=== PATIENT | male | born 1960 | race Two or more races ===

== ENCOUNTER 2017-04-03 11:48 | Inpatient (IN) | payer MEDICARE, MEDICAID ==
[~2017-04-03] VITALS: Ht 180.3 cm; Wt 92.8 kg
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
--- NOTE | ~2017-04-03 | NDGEN ---
PATIENT'S NAME: ELDA DAVIDSON [facility] AGE: 56 Y [address] ROOM: [place] [address] LOCATION: GPCU ADMIT DATE: 04/03/2017 Neurodiagnostics DISCHARGE DATE: 04/04/2017 FAMILY PHYSICIAN: PHYSICIAN, NO ATTENDING PHYSICIAN: Mary Cordero PROCEDURE: ELECTROENCEPHALOGRAM DATE OF PROCEDURE: 04/04/2017 TEST: TECH: CLINICAL DIAGNOSIS: DURATION OF EE minutes. REASON FOR EEG: Seizures. CLINICAL HISTORY: The patient is a 56-year-old male who has history of coronary artery disease, alcoholism, COPD, and old stroke who is visiting to [place] from [place] to see his son. While coming to the hospital, the patient had a sudden fall and was noted to be somewhat confused. EEG FINDINGS: The patient is asleep for the entire duration of EEG. The sleep pattern shows good symmetric sleep structures with 14 hertz sleep spindles in the frontal central regions, vertex waves in the central head regions, and K complexes were appreciated. Activation procedures included photic stimulation between 3-30 hertz, which did not show any abnormalities. No definitive awake pages were achieved during this recording. CLASSIFICATION: Normal sleep 10/20 scalp electrodes. IMPRESSION: This EEG is somewhat limited in interpretation as there were no definitive awake pages that were seen. The sleep symmetry appears to be good and has good sleep-related structures throughout the recording. The patient was not awake at any time during this recording. Please correlate clinically. No definitive epileptiform discharges or EEG seizures were seen during this recording. PRASHANTH MORGAN MD SYLVIA/modl PATIENT'S NAME: ELDA DAVIDSON [facility] AGE: 56 Y [address] ROOM: [place] [address] LOCATION: GPCU ADMIT DATE: 04/03/2017 Neurodiagnostics DISCHARGE DATE: 04/04/2017 FAMILY PHYSICIAN: PHYSICIAN, NO ATTENDING PHYSICIAN: Mary Cordero /[id number] dtt: 04/05/17 0938 , PRASHANTH MORGAN dtd: 04/05/17 0327
--- NOTE | ~2017-04-03 | ECHO ---
Transthoracic Echocardiography Report (TTE) Demographics Patient Name ELDA DAVIDSON Date of Study 04/03/2017 Patient Number [id number] Visit Number [id number] Date of 1960 Room Number G6337 Accession Number [id number] Gender Male Age 56 year(s) Referring Abdoul Arias MD Laborer Filter Plant Terri Rueda [facility], Physician RVT Physician Interpreting Consuelo Hernandez Credit Advisor Physician MD Supervising Ordering Physician Consuelo Hernandez MD/FELIPEP Nurse Stress Carpenter Bridge Conclusions Contractility Score Summary Normal Left Ventricular contractility was noted. Summary Technically difficult exam. Normal LV/RV size and systolic function. The estimated left ventricular ejection fraction is 55-60%. Diastolic assessment reveals Grade I diastolic dysfunction. Moderate posterior pericardial effusion. There is no echocardiographic evidence of cardiac tamponade. Mild mitral regurgitation by color Doppler. Procedure Type of Study TTE procedure:2D Echocardiogram. Procedure Date Date: 04/03/2017 Start: 12:21 PM Study Location: Inpatient Portable Technical Quality: Fair Indications:Chest pain. Appropriate Use Criteria: 7 Patient Status: Routine Rhythm: Within normal limits HR: 80 bpm BP: 131/85 mmHg Allergies - Penicillin. M-Mode/2D Measurements LV Diastolic Dimension: 3.41 cm LV Systolic Dimension: 1.87 cm LV Septum Diastolic: 0.99 cm LV PW Diastolic: 0.89 cm AO Root Dimension: 2.5 cm Cardiac Output: 5.55 l/min LA Dimension: 2.6 cm Post Pericard Effusion: 2 cm LVOT: 2 cm IVC Inspiration: 0.44 cm LVOT VTI: 22.1 cm RV Base: 3.11 cm LV Stroke volume: 69.39 ml RV Length: 5.56 cm TAPSE: 1.6 cm TDI-S': 10.9 cm/s Doppler Measurements AV Peak Velocity: 1.14 m/s MV Peak E-Wave: 0.5 m/s AV Peak Gradient: 5.2 mmHg MV Peak A-Wave: 0.78 m/s AV Mean Gradient: 3 mmHg MV E/A Ratio: 0.64 LVOT Peak Velocity: 0.82 m/s MV P1/2t: 46 msec PV Peak Velocity: 0.65 m/s E' Septal Velocity: 0.09 m/s PV Peak Gradient: 1.71 mmHg E' Lateral Velocity: 0.08 m/s A' Septal Velocity: 0.08 m/s MV E/E' Ratio: 6.7 Findings Left Ventricle The estimated left ventricular ejection fraction is 55-60%. Diastolic assessment reveals Grade I diastolic dysfunction. Right Ventricle Grossly normal right ventricle structure and function. Left Atrium Grossly normal left atrial size. Right Atrium Grossly normal right atrial size. Mitral Valve Mild mitral regurgitation by color Doppler. Aortic Valve The aortic valve is mildly sclerotic. Tricuspid Valve The tricuspid valve is not well visualized. Pulmonic Valve No pulmonic valve regurgitation by color Doppler. The pulmonic valve is not well visualized. Pericardial Effusion Moderate posterior pericardial effusion. Miscellaneous Visualized portions of the aortic root and ascending aorta appear normal in size. Pleural Effusion Possible pleural effusion. Contractility Score LV regional wall motion:(0-Non visualized 1-Normal 2-Hypokinesis 3-Akinesis 4-Dyskinesis 5-Aneurysm) Signature dtt: NILAM HANNA dtd: 04/03/17 1221 Physician Self Edit
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
--- NOTE | ~2017-04-03 | CATH ---
Cardiac Diagnostic Report Demographics Patient Name STUART Alexander Gender Male Date of 1960 Age 56 year(s) Patient Number [id number] Date of Study 04/03/2017 Visit Number [id number] Room Number G6337 Corporate ID Ht 180.34 cm Wt 97.52 kg Referring [facility] Primary Physician Physician Abdoul Arias MD Performing [facility] Secondary Physician Physician Mary ANNE Diagnostic [facility] Assisting Physician Physician Mary ANNE Interventional Physician Machine Sewer Physician Findings and Conclusions Diagnostic Findings and Conclusion Mild non-obstructive CAD. Mid RCA, Mid Cx 20% stenosis and mid LAD 30%. Diagnostic Recommendations Guideline directed medical therapy. CT of Chest to rule out Aortic Dissection and Pulmonary embolism. Patient will be observed overnight. Hydration and followup creatinine. Recommend work up for non-cardiac causes of symptoms. Patient has been instructed to not lift anything more than 5 pounds for 1 week. Aggressive medical therapy for coronary artery disease. Procedure Description The patient was brought to the diagnostic cardiac catheterization-EP laboratory by emergency personal. Physician deemed procedure as EMERGENT. The planned puncture-incision site(s) were shaved and prepped with ChloraPrep and draped in the usual sterile manner. Conscious sedation, supplemental oxygen, and pain control medications were delivered by a registered nurse under physician guidance. Surface ECG rhythm, blood pressure measurement, and pulse oximetry were monitored throughout the procedure. Arterial access. The access site was infiltrated with lidocaine. The vessel was entered with the Seldinger technique. A sheath was advanced into the vessel and used for catheter placement. Selective left coronary angiography. A catheter was advanced into the left coronary vessel ostium under Fluoroscopic guidance. Contrast was injected by hand. Images were obtained in multiple projections. Selective right coronary angiography. A catheter was advanced into the right coronary vessel ostium under fluoroscopic guidance. Contrast was injected by hand. Images were obtained in multiple projections. Left heart catheterization. A catheter was advanced across the aortic valve to the left ventricle under fluoroscopic guidance. Resting hemodynamics were obtained. Arterial artery hemostasis was achieved. The patient was transferred to a regular nursing floor via cart accompanied by a nurse. The patient left the laboratory in stable condition. Diagnostic Cath Status: Emergency Procedure Procedure Type Diagnostic procedure:Angiography:, Coronary Angios w/[facility] Indications: Acute coronary syndrome and non-sustained VTach. The procedure was explained in detail to the patient. Risks, complications and alternative treatments were reviewed. Written consent was obtained. Medications Reviewed with Patient prior to Procedure. Angiographic Findings Dominance: Right Cardiac Arteries and Lesion Findings LMCA: Normal (0% Stenosis). LAD: Abnormal.The 1st Diag appears normal. Lesion on Mid LAD: 30% stenosis . LCx: Abnormal.The 1st ob Brittany appears normal. Lesion on Mid CX: 20% stenosis . RCA: Abnormal.The R PDA appears normal. The R PL appears normal. Lesion on Mid RCA: 20% stenosis . Ramus: Normal (0% Stenosis). Coronary Tree Procedure Data Procedure Date Date: 04/03/2017Start: 01:42 PMEnd: 02:09 PM Entry Locations - Retrograde Percutaneous access was performed through the Right Radial artery (Primary location). A 6 Fr sheath was inserted. Hemostasis was successfully obtained using an R band. Closure Comments: Oscar placed r-band with 15 ml air.. Procedure Medications Order and Administration + + + + + !Time !Medication !Dosage !Route ! + + + + + !04/03/2017 01:38 PM !Versed !1 mg !I.V. ! + + + + + !04/03/2017 01:38 PM !Fentanyl !25 mcg !I.V. ! + + + + + !04/03/2017 01:42 PM !Versed !1 mg !I.V. ! + + + + + !04/03/2017 01:42 PM !Fentanyl !50 mcg !I.V. ! + + + + + !04/03/2017 01:45 PM !Radial Verapamil !2.5 mg !I.A. ! + + + + + !04/03/2017 01:45 PM !Oxygen !2 l/min !NC ! + + + + + !04/03/2017 01:46 PM !Heparin (ACC_3) !4000 units !I.V. bolus ! + + + + + !04/03/2017 01:59 PM !Oxygen ! !NC ! + + + + + Devices Used - A5 Fr. BS JR 4 Diag. Catheterwas used for:Right coronary angiography. - A5 Fr. BS JL 3.5 Diag. Catheterwas used for:Left coronary angiography. Contrast Material - Isovue 34040 ml Fluoroscopy Time: Diagnostic: 2:24 minutes. Total: 2:24 minutes. Fluoroscopy Dose: Diagnostic: 544 mGy. Total: 544 mGy. Estimated Blood Loss: 10 ml. Medical History Performed Procedures and Imaging Results - No ACC stress or imaging studies were performed. Allergies - Penicillin. Risk Factors The patient risk factors include:prior PCI;cerebrovascular disease, hypertension, family history of premature CAD, diet-treated diabetes mellitus, chronic lung disease, dyslipidemia, Current/Recent(w/in 1 year) tobacco use and prior [place] . Admission Data Admission Date: 04/03/2017 Admission Time: 12:10 PM Admit Source: Emergency department Insurance Payors: Medicare. Clinical Evaluation Leading to Procedure - The patient's CAD presentation was assessed as: Unstable angina. - The patient's anginal syndrome during the past two weeks was assessed as: Class IV according to the [place] Cardi[employer] Classification System (CCS). Hemodynamics Condition: Rest O2 Consumption: Estimated: 267.62Heart Rate: 83 bpm Pressures (mmHg) +-----+ + !Site !Pressure ! +-----+ + !LV !97/20 ,16 ! +-----+ + !LV !95/18 ,15 ! +-----+ + !AO !110/86 (99) ! +-----+ + !LV !103/31 ,16 ! +-----+ + !AO !105/84 (95) ! +-----+ + !AO !104/75 (89) ! +-----+ + Valve Gradients and Areas + +---------+---------+---------+ +---------+ + !Valve !Peak !Mean !Area !Index !Flow !Source ! + +---------+---------+---------+ +---------+ + !Aortic !0 ! ! ! ! ! ! + +---------+---------+---------+ +---------+ + !Aortic !0 ! ! ! ! ! ! + +---------+---------+---------+ +---------+ + Shunts Oxygen Values O2 Capacity 202.64 O2 Consumption 267.62 Signatures dtt: MARY HANNA dtd: 04/03/17 1342 Physician Self Edit
--- NOTE | ~2017-04-03 | ER ---
PATIENT'S NAME: ELDA DAVIDSON [facility] AGE: 56 Y [address] ROOM: [place] [address] LOCATION: GPCU ADMIT DATE: 04/03/2017 ER/Outpatient Report DISCHARGE DATE: FAMILY PHYSICIAN: PHYSICIAN, NO ATTENDING PHYSICIAN: NILAM HANNA CHIEF COMPLAINT: Fall and chest pain. HISTORY OF PRESENT ILLNESS: Mr. Davidson arrives by ambulance for assistance alert within the hospital. He is originally from [facility]. Has a history of cirrhosis, seizure, stroke, COPD, and coronary artery disease with three caths and some stents in the past. He states that he has had chest pain for about a day but it got a lot worse this morning. This actually did cause him to fall. He also feels very weak with nonspecific symptoms in both arms and both legs. He states he cannot move his left leg. He is a very poor historian. His associated family is not particularly helpful but does give some perspective. The patient rates his chest pain at 8/10 and it is heaviness that radiates through to his back. PAST MEDICAL HISTORY: Documented on the record and reviewed by me. SOCIAL HISTORY: Documented on the record and reviewed by me. MEDICATIONS: Documented on the record and reviewed by me. ALLERGIES: DOCUMENTED ON THE RECORD AND REVIEWED BY ME. REVIEW OF SYSTEMS: All systems were reviewed and negative except as noted in the HPI. PHYSICAL EXAMINATION: VITAL SIGNS: Blood pressure was found to be within normal limits, please see flow sheet for same. Initial blood pressure is 131/85, pulse is 92, SpO2 is 99% on room air. Pain is rated 8/10. GENERAL: Age-appropriate male, frail appearance, recumbent on exam table, slightly diaphoretic, in mild distress and confused. NEUROLOGIC: The patient is awake, he is intermittently alert. No focal deficits appreciated. It takes significant amount of concentration and PATIENT'S NAME: ELDA DAVIDSON [facility] AGE: 56 Y [address] ROOM: [place] [address] LOCATION: GPCU ADMIT DATE: 04/03/2017 ER/Outpatient Report DISCHARGE DATE: FAMILY PHYSICIAN: PHYSICIAN, NO ATTENDING PHYSICIAN: TUNUGUNTLA,NILAM encouragement to have him activate his left side, but he is able to do so symmetrically when compared with the right side. Sensation is grossly intact to touch throughout. No obvious cranial nerve deficits. HEENT: Normocephalic, atraumatic. Eyes are PERRL. Oropharynx is clear. NECK: Supple. Trachea is midline. CHEST: Heart has regular rate and rhythm with no obvious murmurs. LUNGS: Grossly clear to auscultation bilateral. ABDOMEN: Soft, nontender, and nondistended. Slightly protuberant. BACK: Normal to inspection and palpation. EXTREMITIES: Warm, well formed, no appreciable deformities or edema. SKIN: Clean and intact with mild diaphoresis. Labs were obtained. CMS: Potassium is 3.4, chloride is 111, CO2 is 19, sodium is 140, BUN is 15, creatinine 1.2. AST is 49, otherwise LFTs are unremarkable. Initial CPK, CK-MB, and troponin are within normal limits. CBC with no appreciable abnormalities. INR is 1. Chest x-ray is unremarkable per my review with spinal cord stimulator in place. Head CT unremarkable per Radiology review. IMPRESSION: 1. Nonsustained ventricular tachycardia. 2. Syncopal event versus fall. 3. Active chest pain. EMERGENCY DEPARTMENT COURSE: The patient was seen and evaluated as above. His presentation is unclear as to its etiology. Based on his history, with his chief complaint, cardiac was considered most likely. The patient did have a few runs of nonsustained ventricular tachycardia here in the emergency department. He was slightly confused after these. He overall did well. Dr. Vazquez, hospitalist, will admit for further evaluation and treatment of his current presentation. Dr. Mosquera will take him to the drop crew laborer for definitive evaluation of the heart status. All questions were answered to the best of my ability, and he was admitted. MD JOHN ESTRELLA/quita /[id number] d: t: 04/03/175, OUTPATIENT REPORT
--- NOTE | ~2017-04-03 | DS ---
PATIENT'S NAME: ELDA DAVIDSON [facility] AGE: 56 Y [address] ROOM: [address] [place], [place] [address] LOCATION: GPCU ADMIT DATE: 04/03/2017 Discharge Summary DISCHARGE DATE: 04/04/2017 FAMILY PHYSICIAN: PHYSICIAN, NO ATTENDING PHYSICIAN: Mary Cordero ADMITTING DIAGNOSIS: Fall, questionable seizure. DISCHARGE DIAGNOSIS: Loss of consciousness, possible seizure. SECONDARY DIAGNOSIS: Chest pain. PROCEDURE: 1. Coronary angiogram done on April 03, 2017, which shows no obstructive coronary artery disease. 2. CT PE protocol that shows no signs of PE. 3. CT head done twice in 24 hours' duration, which shows no signs of acute change. CONSULTATIONS: Neurology and Cardiology. HISTORY OF PRESENT ILLNESS: The patient is a 56-year-old gentleman with past medical history of CAD, status post PCI; liver disease, alcoholic; COPD; stroke with some left residual deficit, who presents here with syncope. The patient is originally from [place], [place] and was here to visit the son in the hospital. However, today while coming into the hospital, the patient had a sudden fall. Assist Alert was called and the patient was seen in the hospital facility. The patient was noted to be somewhat confused and complained about chest pain. The patient was taken to the emergency department for further care. The patient reports that for the past 24 hours he has been experiencing substernal chest pain radiating to his shoulder blade. Initially, he rates the pain at 4/10, but however, lately has been 10/10. Currently, he rates the pain at 4/10. He reports that the pain is constant in nature, without alleviating or exacerbating factor. The patient also reports worsening of his residual left-sided weakness. Of note, the patient also reports that he was confused after his fall and was not quite sure whether he had a seizure or not. HOSPITAL COURSE: There were suspicions for coronary events as the patient had some nonsustained V-tach. The patient was taken to the cath lab tech and coronary angiogram was done, which shows no signs of obstructive coronary artery disease. The patient also had echocardiogram, which shows normal EF. There was a concern for PE since the patient has some substernal chest pain and syncope. CT chest was done that shows no PE. During his stay, the patient PATIENT'S NAME: ELDA DAVIDSON [facility] AGE: 56 Y [address] ROOM: [address] [place], [place] [address] LOCATION: GPCU ADMIT DATE: 04/03/2017 Discharge Summary DISCHARGE DATE: 04/04/2017 FAMILY PHYSICIAN: PHYSICIAN, NO ATTENDING PHYSICIAN: Mary Cordero also complained about worsening of his left-sided residual weakness. However, during evaluation by nursing staff and physician, also Neurology consult, the patient was noted to have normal strength, 1 to 2 out of [address] head was negative. MRI was unable to be done because of the patient's pain nerve stimulator. A repeat CT next day shows no signs of stroke. The patient was able to walk and regained his strength back. 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 The patient's Dilantin level was noted to be low. On further discussion, the patient reports that he has not been taking all of his medications since he came to [place]. The patient was given a loading dose of Dilantin and was restarted back on his home medication. CONDITION: Stable. DISPOSITION: Home. DISCHARGE MEDICATIONS: See MAR. DISCHARGE INSTRUCTIONS: If the patient has any seizure-like activity, fall, chest pain, or shortness of breath, to go to the next emergency department. Also told the patient not to drive a car and/or run heavy machinery. FOLLOWUP: With Neurology, Cardiology, and primary care physician. PHYSICAL EXAMINATION: VITAL SIGNS: Stable. HEAD: Normocephalic, atraumatic. CHEST: Clear to auscultation. HEART: Regular rate and rhythm. No murmurs, rubs, or gallops. ABDOMEN: Soft, nontender, nondistended. Bowel sounds present. CARBON PAPER INTERLEAFER: Alert and oriented x2, not oriented to time. Motor and sensory strength are within normal limits. Greater than 30 minutes was spent on discharge planning. MD SABAS TERRY/quita /[id number] d: t: 04/05/17 0445, DISCHARGE SUMMARY
[2017-04-03 12:56] LABS: BASOPHIL % 0.1 %; EOSINOPHIL # 0.1 K/uL (0.0-0.5); EOSINOPHIL % 0.7 %; HEMATOCRIT 42.3 % (37.0-53.0); HEMOGLOBIN 14.9 g/dL (12.0-17.0); IMMATURE GRANULOCYTE % 0.1 %; LYMPHOCYTE # 2.5 K/uL (0.8-4.0); LYMPHOCYTE % 37.2 %; MCH 31.9 pg (27.0-34.0); MCHC 35.2 gm/dL (32.0-36.5); MCV 90.6 fl (83.0-98.0); MONOCYTE # 0.6 K/uL (0.0-1.0); MONOCYTE % 8.5 %; NEUTROPHIL # (ANC) 3.6 K/uL (1.4-9.0); NEUTROPHIL % 53.4 %; NRBC % 0 /100WBC (0-0.00); PLATELET COUNT 165 K/uL (150-450); RBC 4.67 M/uL (4.00-6.00); RDW-CV 12.6 % (11.9-14.6); WBC 6.7 K/uL (4.0-11.0)
[2017-04-03 13:06] LABS: INR - (THERAPEUTIC) 1.07 (0.92-1.07); PROTIME 11.2 SECONDS (9.8-11.4); PTT 29 SECONDS (25-32)
[2017-04-03 13:16] LABS: ALBUMIN 4.6 gm/dL (3.5-5.0); ALK PHOS 92 IU/L (33-138); ALT 46 IU/L (12-78); ANION GAP 13.4 (10.0-19.0); AST 49 IU/L (10-40); BLOOD UREA NITROGEN 15 mg/dL (6-24); CHLORIDE 111 mMol/L (96-110); CO2 19 mMol/L (22-32); CPK 169 IU/L (35-332); CREATININE 1.2 mg/dL (0.6-1.3); POTASSIUM 3.4 mMol/L (3.7-5.1); SODIUM 140 mMol/L (135-145); TOTAL BILIRUBIN 0.6 mg/dL (0.0-1.5); TOTAL PROTEIN 7.9 g/dL (6.0-8.4)
[2017-04-03] MEDS ORDERED: ALENDRONATE SOD35 MG PO (15:45)
[2017-04-03] MEDS ORDERED: FLONASE 50 MCG/16 GM NOSE (15:46)
[2017-04-03] MEDS ORDERED: ANTACID MULTI-1 EACH PO (15:49)
[2017-04-03] MEDS ORDERED: FENOFIBRATE48 MG PO (15:50)
[2017-04-03] MEDS ORDERED: ARIPIPRAZOLE15 MG PO (15:51)
[2017-04-03] MEDS ORDERED: NEXIUM40 MG PO (15:51)
[2017-04-03] MEDS ORDERED: LYRICA 150MG C150 MG PO (15:54)
[2017-04-03] MEDS ORDERED: NAPROSYN500 MG PO (15:54)
[2017-04-03] MEDS ORDERED: XYZAL5 MG PO (15:55)
[2017-04-03] MEDS ORDERED: PRINIVIL (ZESTR20 MG PO (15:55)
[2017-04-03] MEDS ORDERED: SILENOR3 MG PO (15:56)
[2017-04-03] MEDS ORDERED: REGLAN10 MG PO (15:56)
[2017-04-03] MEDS ORDERED: TOPROL XL 5050 MG PO (15:56)
[2017-04-03] MEDS ORDERED: FLOMAX0.4 MG PO (15:57)
[2017-04-03] MEDS ORDERED: ASPIRIN LO-DOSE81 MG PO (15:57)
[2017-04-03] MEDS ORDERED: SINGULAIR10 MG PO (15:57)
[2017-04-03] MEDS ORDERED: LASIX20 MG PO (15:58)
[2017-04-03] MEDS ORDERED: DILANTIN100 MG PO (15:58)
[2017-04-03] MEDS ORDERED: LOVAZA1 GM PO (15:59)
[2017-04-03] MEDS ORDERED: ADVAIR 250-501 EACH INH (16:00)
[2017-04-03] MEDS ORDERED: LINZESS145 MCG PO (16:00)
[2017-04-03] MEDS ORDERED: XANAX2 MG PO (16:00)
[2017-04-03] MEDS ORDERED: VOLTAREN 1% GE100 GM TOP (16:01)
[2017-04-03] MEDS ORDERED: OMEPRAZOLE40 MG PO (16:01)
[2017-04-03] MEDS ORDERED: NORCO 7.5-3251 EACH PO (16:02)
[2017-04-03] MEDS ORDERED: COMBIVENT RESPIM4 GM INH (16:03)
[2017-04-03 18:13] LABS: BARBITURATE NEGATIVE (NEGATIVE); COCAINE NEGATIVE (NEGATIVE); OPIATES POSITIVE (NEGATIVE)
[2017-04-03 18:16] LABS: AMPHETAMINE NEGATIVE (NEGATIVE)
--- NOTE | 2017-04-03 19:54 | NUR ---
Significant Event: A/Ox3. Patient states he has worsening weakness to the L) side. History of 2 strokes. Patient was admited to floor for R) radial heart cath. No interventions. CMS WNL 2+ pulses. When letting out air the tr band was emptied and some bleeding occured. Air reinserted with unrecorded amount. No bleeding, eccymosis or hematoma present. Patient has not had any Vtach since on PCU. Complaints of headache. Percocet given x1 with releif. Patient was also given IV dilatin due to low levels. Seizure precautions initiated. Pleasant and cooperative with cares.
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
--- NOTE | 2017-04-04 06:06 | NUR ---
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
[2017-04-04 07:09] LABS: ALBUMIN 4.1 gm/dL (3.5-5.0); ANION GAP 11.2 (10.0-19.0); CALCIUM 8.6 mg/dL (8.5-10.5); POTASSIUM 4.2 mMol/L (3.7-5.1); TOTAL BILIRUBIN 0.6 mg/dL (0.0-1.5); TOTAL PROTEIN 7.4 g/dL (6.0-8.4)
[2017-04-04 10:21] LABS: CPK 206 IU/L (35-332)
--- NOTE | 2017-04-04 12:07 | NUR ---
Introduced self and role of care management to patient. He lives in [facility] with his . He states that he has a caregiver that assists with his ADL's d/t CVA and back surgries. He uses a scooter, walker and cane. He states that he is here because his son is in the ICU. He states that his left yesterday to go back to [place] to get his medciation and some paperwork. He plans on returning home on discharge although he will stay in [place] for awhile since his son is in the hospital. He denies any needs at this time. Will continue to follow.
== END 2017-04-04 17:10 | disposition disaster alternative care site (69) | DRG 101 ==
LOC: GMED 11:48 → GPCU 12:10
PROVIDERS: Emergency Medicine; Internal Medicine; ADMIT Internal Medicine Interventional Cardiology
PROC: 4A023N7 Measurement of Cardiac Sampling and Pressure, Left Heart, Percutaneous Approach (ICD-10-PCS; principal; 2017-04-03)
PROC: B246ZZZ Ultrasonography of Right and Left Heart (ICD-10-PCS; principal; 2017-04-03)
PROC: B2111ZZ Fluoroscopy of Multiple Coronary Arteries using Low Osmolar Contrast (ICD-10-PCS; principal; 2017-04-03)
DX: G40.909 Epilepsy, unspecified, not intractable, without status epilepticus (principal); I47.2 Ventricular tachycardia; I69.354 Hemiplegia and hemiparesis following cerebral infarction affecting left non-dominant side; R15.9 Full incontinence of feces; F03.90 Unspecified dementia, unspecified severity, without behavioral disturbance, psychotic disturbance, mood disturbance, and anxiety; J44.9 Chronic obstructive pulmonary disease, unspecified; I25.10 Atherosclerotic heart disease of native coronary artery without angina pectoris; R55 Syncope and collapse; E87.6 Hypokalemia; Z87.891 Personal history of nicotine dependence
CPT/HCPCS: J1165; J1644; J2250; J2270; J3010; J7030; J7050; Q0162; Q9967

== ENCOUNTER → 2017-04-03 | Outpatient (CLI) | payer MEDICARE, MEDICAID ==
[~2017-04-03] MED LIST: ADVAIR 250-501 EACH INH; ALENDRONATE SOD35 MG PO; ANTACID MULTI-1 EACH PO; ARIPIPRAZOLE15 MG PO; ASPIRIN LO-DOSE81 MG PO; COMBIVENT RESPIM4 GM INH; DILANTIN100 MG PO; FENOFIBRATE48 MG PO; FLOMAX0.4 MG PO; FLONASE 50 MCG/16 GM NOSE; LASIX20 MG PO; LINZESS145 MCG PO; LOVAZA1 GM PO; LYRICA 150MG C150 MG PO; NAPROSYN500 MG PO; NEXIUM40 MG PO; NORCO 7.5-3251 EACH PO; OMEPRAZOLE40 MG PO; PRINIVIL (ZESTR20 MG PO; REGLAN10 MG PO; SILENOR3 MG PO; SINGULAIR10 MG PO; TOPROL XL 5050 MG PO; VOLTAREN 1% GE100 GM TOP; XANAX2 MG PO; XYZAL5 MG PO
== END | disposition disaster alternative care site (69) ==
LOC: GAMB 11:30
DX: R07.89 Other chest pain (principal); J44.9 Chronic obstructive pulmonary disease, unspecified; I49.9 Cardiac arrhythmia, unspecified; M25.512 Pain in left shoulder; R68.84 Jaw pain; R61 Generalized hyperhidrosis; R42 Dizziness and giddiness; Z98.62 Peripheral vascular angioplasty status; Z86.73 Personal history of transient ischemic attack (TIA), and cerebral infarction without residual deficits; Z82.49 Family history of ischemic heart disease and other diseases of the circulatory system; Z79.82 Long term (current) use of aspirin; Z88.0 Allergy status to penicillin